=== PATIENT | female | born 2000 | race Caucasian/White ===

== ENCOUNTER 2021-06-09 15:23 | Outpatient (CLI) | payer SELFPAY ==
[~2021-06-09] VITALS: Ht 160 cm; Wt 89.5 kg
--- NOTE | 2021-06-09 15:25 | NUR ---
PT AMBULATORY TO UNIT C/O PUBIC PAIN AND PAIN AT HER "VAGINAL CANAL" WHEN SHE "PUSHES UP ON IT HARD." DENIES LEAKING OF FLUID, REPORTS POSITIVE MOVEMENT, DENIES CONTRACTIONS BUT STATES "I DON'T KNOW WHAT A CONTRACTION FEELS LIKE THOUGH." PLACED ON EFM/TOCO. NO CONTRACTIONS NOTED, EFM SHOWS CATEGORY 1 STRIP. WILL CONTINUE TO MONITOR.
[2021-06-09] MEDS ORDERED: PRENATAL (15:38)
[2021-06-09 16:07] VITALS: BP 129/65; PULSE 96; TEMP 98.3
--- NOTE | 2021-06-09 16:20 | NUR ---
ALL DC PAPERWORK REVIEWED AND UNDERSTOOD. PT DENIES FURTHER QUESTION OR CONCERNS. AMBULATORY FROM UNIT IN STABLE CONDITION.
== END 2021-06-09 16:20 | disposition home or self-care (01) ==
LOC: LDRO 15:23 → LDR 15:25 → LDRO 16:20
DX: O26.892 Other specified pregnancy related conditions, second trimester (principal); F17.200 Nicotine dependence, unspecified, uncomplicated; R10.2 Pelvic and perineal pain; Z3A.26 26 weeks gestation of pregnancy
CPT/HCPCS: OP